=== PATIENT | male | born 1935 | race Caucasian/White ===

== ENCOUNTER 2016-11-19 10:55 | Emergency (ER) | payer OTHER, BC ==
--- NOTE | 2016-11-19 16:05 | DIAGNOSTIC IMAGING REPORT ---
PROCEDURE: XR CHEST 2 VIEW INDICATION: SHORTNESS OF BREATH TECHNIQUE: PA and lateral views. COMPARISON: None. FINDINGS: Lungs are clear. Heart and mediastinum are normal. Thorax is normal. There is apical pleural thickening on the right. IMPRESSION: 1. No acute disease
--- NOTE | 2016-11-19 16:29 | ED ORDER SUMMARY ---
..... Patient: CURT KNIGHT OrderSheet [facility] VisitID: [id number] [place] [address] 81y, M Registration Date/Time: 11/19/2016 ORDER SHEET Weight: 58.9 kg (stated) Allergies: No Known Drug Allergy GENERAL ORDERS: CBC w Diff Urgent (11:07 11/19/2016 SRoberts R.N. per protocol) (Ack 11:14 LTapper) (11:23 SRoberts R.N.) CMP Urgent (11:11/19/2016 SRoberts R.N. per protocol) (Ack 11:14 LTapper) (11:22 SRoberts R.N.) Trop[facility] (11:55 [facility] (Ack 11:57 LTapper) (15:28 SBalde R.N.) TSH Urgent (11:55 11/19/2016 [facility] ) (Ack 11:57 LTapper) (15:28 SBalde R.N.) Urine Drug Screen Urgent (11:55 11/19/2016 [facility] ) (Ack 11:57 LTapper) (15:28 SBalde R.N.) UA-Culture if indicated Urgent (11:55 11/19/2016 [facility]) (Ack 11:57 LTapper) (16:46 SStone R.N.) BNP Urgent (11:56 11/19/2016 [facility]) (Ack 11:57 LTapper) (15:28 SBalde R.N.) Old Records (from [facility] 11/17/2016) (12:01 11/19/2016 [facility] ) (Ack 12:10 LTapper) (13:06 SStone R.N.) Vitals - Orthostatic (12:10 11/19/2016 [facility]) (15:29 SBalde R.N.) Chest 2V Urgent (15:20 11/19/2016 [facility] ) (Ack 15:22 LTapper) (15:28 SBalde R.N.) Rapid Influenza Screen (Nasal Pharyngeal) (MOLDED RUBBER GOODS CUTTER swab) Urgent (17:20 11/19/2016 [facility]) (Ack 17:34 LTapper) (18:11 SStone R.N.) MEDICATION ORDERS: Tylenol PO 650 mg (NOW) (17:07 11/19/2016 SStone R.N. verbal order read back to [facility]) (Ack 17:12 SStone R.N.) (17:12 SStone R.N.) - (Tamiflu 75mg) (18:07 11/19/2016 [facility]) (18:12 SStone R.N.) Tylenol PO 325 mg (NOW) (18:12 11/19/2016 SStone R.N. verbal order read back to [facility]) (18:12 SStone R.N.) IV FLUIDS: IV Saline Lock (11:07 11/19/2016 Kathrin R.N. per protocol) (Ack 11:07 SRoberts R.N.) (11:08 SRoberts R.N.) IV NS : initial bolus 500 mL (1000 mL/hr), then 250 mL/hr for X2 (NOW) (11:56 11/19/2016 [facility]) (Ack 11:58 SStone R.N.) (12:06 SStone R.N.) ORDER SHEET NOTES: [Electronically signed by Brenda Raygoza R.N. (19:20 11/19/2016)] [Electronically signed by Tye Bhatti DO (11:23 11/20/2016)] [Electronically locked/signed by Brenda Raygoza R.N. (19:20 11/19/2016)]
--- NOTE | 2016-11-19 16:29 | ED CLINICAL REPORT ---
Clinical Report - Physicians/Mid Levels [facility] [address] [place] [address] 11/19/2016 11:08 Patient: CURT KNIGHT Time Seen: 11:50. Arrived- By ambulance. Historian- patient, EMS personnel and family. HISTORY OF PRESENT ILLNESS Chief Complaint: DIZZINESS. Severity described as moderate at its maximum. When seen in the E.D., it was almost gone. Modifying factors- worsened by standing up. Relieved by rest. Not described as a sense of movement or falling. Described as feeling light-headed and a sense of confusion. Described as feeling weak all over (transiently). This started yesterday and is still present. It was gradual in onset. The patient has had hearing loss. He has had nausea. He has had mild vomiting. The vomiting has occurred only once. No bilious emesis, blood-tinged emesis, coffee-grounds emesis or frankly bloody emesis. No tinnitus. (Pt's has been hospitalized at [facility] and pt has been traveling a lot and not drinking fluids - "only coffee".). Similar symptoms previously: Recent medical care: The patient was seen recently at another facility in the emergency department. ( Seen at [facility] yesterday - told has "acute kidney injury" and "dehydration"). REVIEW OF SYSTEMS No headache, chest pain, palpitations, black stools or bloody stools. No fever, sore throat, difficulty breathing, abdominal pain or diarrhea. No difficulty with urination or skin rash. The patient has had new onset of generalized weakness. He has had mild nasal congestion and a mild cough. All systems otherwise negative, except as recorded above. PAST HISTORY Hyperlipidemia. Hearing loss. History of cancer. Previous treatment includes chemotherapy and radiotherapy. 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 Medications: Atorvastatin 40 mg daily . Allergies: No Known Drug Allergy. SOCIAL HISTORY Never smoker. No alcohol use or drug use. Is a local resident. ADDITIONAL NOTES The nursing notes have been reviewed. PHYSICAL EXAM Vital Signs: 11/19/2016 10:52 BP: 121/61. HR: 99. RR: 19. O2 saturation: 98%. Temp: 98.8 F. Pain level now: 0/10. Appearance: Alert. Patient in mild distress. Eyes: No nystagmus. Extraocular movements normal. ENT: Moist mucous membranes. Pharynx normal. Neck: Normal inspection. CVS: Tachycardia. Heart sounds normal. Pulses normal. Respiratory: No respiratory distress. Breath sounds normal. Abdomen: Soft and nontender. Back: Normal inspection. Skin: Skin warm and dry. Normal skin color. No rash. Normal skin turgor. Extremities: Extremities exhibit normal ROM. No lower extremity edema. Neuro: Alert. Oriented X 3. Mood/affect normal. Speech normal. Cranial nerves normal (as tested). No motor deficit. No sensory deficit. Reflexes normal. LABS, X-RAYS, AND EKG EKG: EKG time: (10:56). Normal sinus rhythm. Occasional ectopic beats. Premature atrial contractions. Normal P waves. Normal JESS. Normal QRS complex. Normal axis. Non-specific ST segment / T wave abnormalities. The study has been interpreted contemporaneously by me. The EKG appears to be a good tracing. Rhythm Strip #1: Normal sinus rhythm. Regular rhythm. Narrow QRS complexes. Occasional premature atrial contractions. Premature ventricular contractions. Laboratory Tests: UA-Culture if indicated: (JUAN F: 11/19/2016 16:45) ( MsgRcvd 11/19/2016 17:13) Final results Test Result Flag Units (Reference) URINE COLOR YELLOW URINE APPEARANCE CLEAR URINE GLUCOSE NEGATIVE (NEGATIVE) URINE BILIRUBIN NEGATIVE (NEGATIVE) URINE KETONE NEGATIVE (NEGATIVE) URINE SPECIFIC GRAVITY >= 1.030 (1.010-1.030) URINE PH 5.5 (5.0-8.0) URINE PROTEIN TRACE (NEGATIVE) URINE UROBILINOGEN 0.2 EU/dL (0.2-1.0) URINE NITRITE NEGATIVE (NEGATIVE) URINE BLOOD 1+ (NEGATIVE) URINE LEUK ESTERASE NEGATIVE (NEGATIVE) URINE RBC NONE SEEN rbc/hpf (0-1) URINE WBC RARE wbc/hpf (0-1) URINE EPITHELIAL CELLS RARE EPI/hpf (0-5) URINE BACTERIA NONE SEEN (NONE SEEN) URINE COMMENT CULT NOT INDICATED URINE CULTURES ARE SET-UP BASED ON THE FOLLOWING CRITERIA:POSITIVE NITRITEPOSITIVE LEUKOCYTE ESTERASEGREATER THAN 10 WHITE BLOOD CELLSMODERATE (2+) OR GREATER BACTERIA CBC w Diff: (JUAN F: 11/19/2016 11:00) ( [facility] 11/19/2016 11:35) Final results Test Result Flag Units (Reference) WHITE BLOOD COUNT 5.9 K/uL (4.5-11.5) RED BLOOD COUNT 3.67 L M/uL (4.50-5.90) HEMOGLOBIN 11.4 L gm/dL (13.5-17.5) HEMATOCRIT 34.0 L % (41.0-53.0) MEAN CELL VOLUME 93 fL (80-100) MEAN CORPUSCULAR HGB 31 pg (26-34) MEAN CORPUSCULAR HGB CONC 33 g/dL (31-37) RED CELL DISTRIBUTION WIDTH 13.0 % (11.6-14.8) PLATELET COUNT 152 K/uL (150-400) NEUTROPHIL % 76.7 H % (50-75) LYMPH % 13.9 L % (25-40) MONO % 9.0 % (3-14) EOSINOPHIL % 0.1 % (0-4) BASOPHIL % 0.3 % (0-2) BNP: (JUAN F: 11/19/2016 11:00) ( [facility] 11/19/2016 12:17) Final results Test Result Flag Units (Reference) B-TYPE NATRIURETIC PEPTIDE 23.9 pg/ml (5-100) Urine Drug Screen: (JUAN F: 11/19/2016 16:45) ( [facility] 11/19/2016 17:23) Final results Test Result Flag Units (Reference) AMPHETAMINE/METHAMPHETAMINE NEGATIVE (NEGATIVE) BARBITURATE NEGATIVE (NEGATIVE) BENZODIAZEPINE NEGATIVE (NEGATIVE) CANNABINOID NEGATIVE (NEGATIVE) COCAINE NEGATIVE (NEGATIVE) ECSTASY NEGATIVE (NEGATIVE) METHADONE NEGATIVE (NEGATIVE) OPIATE NEGATIVE (NEGATIVE) The urine drug screen is a qualitative screening test fordrug overdose and abuse. All screen results should beconsidered as presumptive.Drugs screened for are as follows:BenzodiazepinesCocaineAmphetamines/MetamphetaminesTHC (Tetrahydrocannabinol)OpiatesBarbituratesEcstasyMethadonePositive results are unconfirmed. For confirmation, notifythe lab for the specimen to be sent to the reference lab.All confirmations must be performed by a differentmethodology.The ingestion of natural herbal and plant productscontaining Ephedra/Ephedra metabolites can produce in urineone or more substances capable of cross reacting withamphetamine/methamphetamine immunoassays. These testsprovide a preliminary result only. A more specificalternative chemical method must be used to obtain aconfirmed analytical result. Troponin-I: (JUAN F: 11/19/2016 11:00) ( MsgRcvd 11/19/2016 13:01) Final results Test Result Flag Units (Reference) TROPONIN I 0.07 ng/mL (0.00-1.5) TROPONIN REFERENCE RANGE:<0.1 NEGATIVE0.1-1.5 INDETERMINANT>1.5 POSITIVE THYROID STIMULATING HORMONE 1.750 uIU/mL (0.30-3.74) CMP: (JUAN F: 11/19/2016 11:00) ( MsgRcvd 11/19/2016 11:42) Final results Test Result Flag Units (Reference) GLUCOSE 129 H mg/dL (70-110) BUN 19 H mg/dL (7-18) CREATININE 1.6 H mg/dL (0.6-1.3) Estimated GFR 44.54 mL/min Estimated GFR- 53.98 mL/min Note: Persistent reduction over 3 months in eGFR<60 mL/min/1.73 m2 defines CKD. Patients with eGFR values>=60 mL/min/1.73 m2 may also have CKD if evidence ofpersistent proteinuria. Additional information may be foundat www.kidney.org. SODIUM 139 mmol/L (136-145) POTASSIUM 3.9 mmol/L (3.5-5.1) CHLORIDE 104 mmol/L (98-107) CARBON DIOXIDE 31 mmol/L (21-32) CALCIUM 8.3 L mg/dL (8.5-10.1) TOTAL PROTEIN 6.5 g/dL (6.4-8.2) ALBUMIN 3.7 g/dL (3.3-5.0) BILIRUBIN, TOTAL 0.6 mg/dL (0.0-1.0) ALKALINE PHOSPHATASE 65 U/L (46-116) AST (SGOT) 28 U/L (15-37) ALT (SGPT) 38 U/L (12-78) Rapid Influenza Screen: (JUAN F: 11/19/2016 17:25) ( MsgRcvd 11/19/2016 18:07) Final results SPECIMEN DESCRIPTION: COLD MOLDING PRESS OPERATOR SWAB Test Result Flag Units (Reference) RAPID INFLUENZA SCREEN CALLED TO: RAFAEL -- DATE: 11/19/16 INFLUENZA A: POSITIVE SCREEN FOR INFLUENZA A INFLUENZA B: NEGATIVE SCREEN FOR INFLUENZA B . (09/29/2016: BUN/ Cr - 16/1.34). Bedside Tests: Glucose: mild hyperglycemia - 150 (performed by EMS). Pulse Oximetry: 11/19/2016 10:52 O2 saturation: 98%. (FIO2 - room air). Interpretation: normal. PROGRESS AND PROCEDURES Course of Care: Tamiflu 75mg PO given. Acetaminophen 1000 mg PO given. Normal Saline 1 liter IVPB given. Pt has been essentially asymptomatic during entire stay. He appears to be somewhat dehydrated with mild BUN and Cr elevation and high sp gr on UA. 16:34 11/19/16. Pt being discharged and now noted to have fever. No UA back yet. Flu screen sent. Rapid flu screen confirms influenza. Pt appears to have just seroconverted. He has advanced age and may benefit from Tamiflu - begun in the ED. Patient/family counseled. Old medical records ordered. Disposition: Discharged. Condition: stable and improved. CLINICAL IMPRESSION Acute fever Near syncope .12 lead EKG performed. Mild dehydration Mild anemia. Influenza type A with upper respiratory infection. INSTRUCTIONS Rest. Drink plenty of fluids. No alcohol. (Please sit down immediately if any sense of lightheadedness again. You have declined admission now and understand, that without ongoing monitoring, you may have a problem that is not evident during your Emergency evaluations.). Warnings: Further evaluation is necessary in order to recheck abnormal lab, obtain test results, conduct further tests and assess the possibility of serious illness. It is very important to follow up with a physician. GENERAL WARNINGS: Return or contact your physician immediately if your condition worsens or changes unexpectedly, if not improving as expected, or if other problems arise. Your Current Medications: CONTINUE TAKING THE FOLLOWING MEDICATIONS: Atorvastatin 40 mg daily *. Prescription Medications: Tamiflu 75 mg: take 1 capsule orally every 12 hours for 5 days. Dispense ten (10). No refills. Substitution is permissible. Follow-up: Follow up with your doctor tomorrow. (Electronically signed by Tye Bhatti DO 11/20/2016 11:23)
--- NOTE | 2016-11-19 16:29 | ED ORDER SUMMARY ---
..... Patient: CURT KNIGHT OrderSheet [facility] VisitID: [id number] [place] [address] 81y, M Registration Date/Time: 11/19/2016 ORDER SHEET Weight: 58.9 kg (stated) Allergies: No Known Drug Allergy GENERAL ORDERS: CBC w Diff Urgent (11:07 11/19/2016 SRoberts R.N. per protocol) (Ack 11:14 LTapper) (11:23 SRoberts R.N.) CMP Urgent (11:11/19/2016 SRoberts R.N. per protocol) (Ack 11:14 LTapper) (11:22 SRoberts R.N.) Troponin-I Urgent (11:55 11[facility]19[facility]2016 [facility] ) (Ack 11:57 LTapper) (15:28 SBalde R.N.) TSH Urgent (11:55 11/19/2016 [facility] ) (Ack 11:57 LTapper) (15:28 SBalde R.N.) Urine Drug Screen Urgent (11:55 11/19/2016 [facility] ) (Ack 11:57 LTapper) (15:28 SBalde R.N.) UA-Culture if indicated Urgent (11:55 11/19/2016 [facility]) (Ack 11:57 LTapper) (16:46 SStone R.N.) BNP Urgent (11:56 11/19/2016 [facility]) (Ack 11:57 LTapper) (15:28 SBalde R.N.) Old Records (from [facility] 11/17/2016) (12:01 11/19/2016 [facility] ) (Ack 12:10 LTapper) (13:06 SStone R.N.) Vitals - Orthostatic (12:10 11/19/2016 [facility]) (15:29 SBalde R.N.) Chest 2V Urgent (15:20 11/19/2016 [facility] ) (Ack 15:22 LTapper) (15:28 SBalde R.N.) Rapid Influenza Screen (Nasal Pharyngeal) (HORSE RIDER swab) Urgent (17:20 11/19/2016 [facility]) (Ack 17:34 LTapper) (18:11 SStone R.N.) MEDICATION ORDERS: Tylenol PO 650 mg (NOW) (17:07 11/19/2016 SStone R.N. verbal order read back to [facility]) (Ack 17:12 SStone R.N.) (17:12 SStone R.N.) - (Tamiflu 75mg) (18:07 11/19/2016 [facility]) (18:12 SStone R.N.) Tylenol PO 325 mg (NOW) (18:12 11/19/2016 SStone R.N. verbal order read back to [facility]) (18:12 SStone R.N.) IV FLUIDS: IV Saline Lock (11:07 11/19/2016 Kathrin R.N. per protocol) (Ack 11:07 SRoberts R.N.) (11:08 SRoberts R.N.) IV NS : initial bolus 500 mL (1000 mL/hr), then 250 mL/hr for X2 (NOW) (11:56 11/19/2016 [facility]) (Ack 11:58 SStone R.N.) (12:06 SStone R.N.) ORDER SHEET NOTES: [Electronically signed by Brenda Raygoza R.N. (19:20 11/19/2016)] [Electronically signed by Tye Bhatti DO (11:23 11/20/2016)] [Electronically locked/signed by Brenda Raygoza R.N. (19:20 11/19/2016)]
--- NOTE | 2016-11-19 16:29 | ED NURSING NOTES ---
Clinical Report [facility] [address] 11/19/2016 11:08 Patient: CURT KNIGHT TRIAGE Triage time 10:52. Acuity: LEVEL 3. Chief Complaint: DIZZINESS and WEAKNESS. Alert. No acute distress. SEPSIS SCREEN: Sepsis Screen. Negative (no infection suspected/documented). --10:57 Brenda Raygoza R.N. 10:52 11/19/16. BP: 121/61. HR: 99. RR: 19. O2 saturation: 98%. Temp: 98.8 F. Pain level now: 0/10. --10:57 Brenda Raygoza R.N. Weight: 58.9 kg stated. Height/Length: 63 inches Per Patient. BMI: 23. --10:56 Brenda Raygoza R.N. Medications Atorvastatin 40 mg daily . --10:56 Brenda Raygoza R.N. The following entry was struck by Brenda Raygoza R.N., 10:55 (11/19/16) Reason - wrong value. <<STRICKEN ENTRY-- Atorvastatin unknown dose. --10:55 Brenda Raygoza R.N. --END STRIKE>>. Allergies No Known Drug Allergy. --10:55 Brenda Raygoza R.N. History Arrived by EMS. Historian: patient. Accompanied by friend. ( dizziness. Vomiting x 1). This started yesterday. ( Seen yesterday at [facility] for "acute kidney injury and dehydration"). The patient has had trouble walking (slow). The patient has had vomiting and weakness. Treatment PAPER PRODUCTS SUPERVISOR: None. See EMS report. --10:57 Brenda Raygoza R.N. Treatment PAPER PRODUCTS SUPERVISOR: (Blood sugar by EMS 150). --11:01 Brenda Raygoza R.N. PROBLEMS: Hypercholesterolemia. Throat CA. --10:55 Brenda Raygoza R.N. Interventions ID band on patient. --10:57 Brenda Raygoza R.N. PHYSICAL ASSESSMENT To room via stretcher. GENERAL / NEURO / PSYCH: Oriented X 4. Alert. Speech within normal limits. HEENT: No facial asymmetry noted. Pupils equal, round and reactive to light. RESPIRATORY: Breath sounds within normal limits. Respirations not labored. GI / : Abdomen soft and nontender. SKIN: Skin is warm and dry. --11:02 Brenda Raygoza R.N. NURSING PROGRESS NOTES Monitoring of patient in place. EKG time: (10:57). EKG was performed by a tech. Patient gowned. Head of bed elevated. Reassurance given. Patient identifiers checked. Call light placed in reach. Side rails up. Bed placed in lowest position. Patient ready for evaluation. Patient waiting for evaluation. --10:57 Brenda Raygoza R.N. 11:08 11/19/2016 Site #1 started via IV in the left antecubital space with an 20g angiocath, with aseptic technique and good blood return; one attempt. Blood drawn: rainbow set. Labeled in the presence of the patient and held. Saline lock flushed with 10 mL saline. --11:08 Ayanna Dutton R.N. EKG time: (10:56 AM). EKG was performed by a tech and shown to the ED physician. --12:02 Danelle Matos 12:06 11/19/2016 Started bag #1 1000 mL IV Fluids IV NS (Saline); at 500 mL/hr over 1 hour(s) via site #1 --12:06 Brenda Raygoza R.N. 12:00 11/19/16. BP: 118/64. HR: 91. RR: 18. O2 saturation: 96%. Pain level now: 0/10. --12:20 Brenda Raygoza R.N. ( patient resting quietly. Call light within reach. Daughter at bedside. Lights dimmed, warm blanket provided. No needs at this time.). --12:20 Brenda Raygoza R.N. 12:30 11/19/16. BP: 117/58. HR: 82. RR: 16. O2 saturation: 96%. --12:54 Brenda Raygoza R.N. 12:00. ( pt sleeping. call light within reach.). --12:54 Brenda Raygoza R.N. 13:05 11/19/2016 IV Fluids IV NS via IV site #1 Rate Changed: bag #1 decreased to 250 mL/hr via IV pump. IV patency established. IV site checked: no pain, redness, or swelling. IV flushed thoroughly. --13:05 Brenda Raygoza R.N. 13:41 11/19/16. BP: 122/65. HR: 85. --13:42 Brenda Raygoza R.N. ( resting quietly. no needs. call light in reach.). --13:42 Brenda Raygoza R.N. 13:54 11/19/16. BP: 138/71 (regular adult cuff) taken on the left arm, via an automated monitor, while lying. HR: 91. --14:31 Toddfelipe Danelle 13:58 11/19/16. BP: 152/78 (regular adult cuff) taken on the left arm, via an automated monitor, while sitting. RN notified. HR: 97. --14:36 Danelle Matos 14:36 11/19/16. BP: 154/86 (regular adult cuff) taken on the left arm, via an automated monitor, while standing. HR: 101. --14:37 Danelle Matos 14:00 11/19/16. BP: 154/86 (regular adult cuff) taken on the left arm, via an automated monitor, while standing. HR: 101 (regular). --14:45 Danelle Matos ( back from [facility] --15:32 Vania Lara R.N. 15:00 11/19/16. BP: 135/71. HR: 94. RR: 16. O2 saturation: 97%. --16:25 Brenda Raygoza R.N. 16:40 11/19/16. Temp: 101.7 F. Additional comments: aware . --16:40 Brenda Raygoza R.N. ( urine sent to the lab.). --16:45 Brenda Raygoza R.N. 17:12 11/19/2016 Tylenol (Acetaminophen) PO Tablets 650 mg given. --17:12 Brenda Raygoza R.N. 17:17 01/19/17. BP: 152/84. HR: 98. RR: 16. --17:23 Brenda Raygoza R.N. 17:28 11/19/16. Temp: 102.3 F. --17:28 Brenda Raygoza R.N. ( jello given). --17:28 Brenda Raygoza R.N. 15:05 11/19/2016 IV Fluids IV NS Discontinued: bag #1 infused. Total amount infused: 1000 mL. --19:20 Brenda Raygoza R.N. 18:12 11/19/2016 Tamiflu PO Capsules 75 mg given. --18:12 Brenda Raygoza R.N. 18:12 11/19/2016 Tylenol (Acetaminophen) PO Capsules 325 mg given. --18:12 Brenda Raygoza R.N. DISPOSITION / DISCHARGE 18:25 11/19/2016 Site #1 removed upon discharge. Pressure dressing applied. --19:19 Brenda Raygoza R.N. Departure time: 1825. Discharge instructions provided and reviewed with the family. Reviewed warnings. Reviewed medication(s) side effects information. Prescription(s) given to the parent. Family verbalized understanding. Written instructions provided in Bangladeshi. The patient was discharged home and accompanied by family. He left the Emergency Department in a wheelchair and via private vehicle. Family member driving. --19:19 Brenda Raygoza R.N. 19:18 11/19/16. BP: 132/79. HR: 96. RR: 18. O2 saturation: 96%. Temp: 100.4 F. Pain level now: 0/10. --19:19 Brenda Raygoza R.N. Locked/Released at 11/19/2016 19:20 by Brenda Raygoza R.N.
--- NOTE | 2016-11-19 16:29 | ED NURSING NOTES ---
Clinical Report - Nurses [facility] [place] [address] 11/19/2016 11:08 Patient: CURT KNIGHT TRIAGE Triage time 10:52. Acuity: LEVEL 3. Chief Complaint: DIZZINESS and WEAKNESS. Alert. No acute distress. SEPSIS SCREEN: Sepsis Screen. Negative (no infection suspected/documented). --10:57 Brenda Raygoza R.N. 10:52 11/19/16. BP: 121/61. HR: 99. RR: 19. O2 saturation: 98%. Temp: 98.8 F. Pain level now: 0/10. --10:57 Brenda Raygoza R.N. Weight: 58.9 kg stated. Height/Length: 63 inches Per Patient. BMI: 23. --10:56 Brenda Raygoza R.N. Medications Atorvastatin 40 mg daily . --10:56 Brenda Raygoza R.N. The following entry was struck by Brenda Raygoza R.N., 10:55 (11/19/16) Reason - wrong value. <<STRICKEN ENTRY-- Atorvastatin unknown dose. --10:55 Brenda Raygoza R.N. --END STRIKE>>. Allergies No Known Drug Allergy. --10:55 Brenda Raygoza R.N. History Arrived by EMS. Historian: patient. Accompanied by friend. ( dizziness. Vomiting x 1). This started yesterday. ( Seen yesterday at [facility] for "acute kidney injury and dehydration"). The patient has had trouble walking (slow). The patient has had vomiting and weakness. Treatment FERRIS WHEEL OPERATOR: None. See EMS report. --10:57 Brenda Raygoza R.N. Treatment FERRIS WHEEL OPERATOR: (Blood sugar by EMS 150). --11:01 Brenda Raygoza R.N. PROBLEMS: Hypercholesterolemia. Throat CA. --10:55 Brenda Raygoza R.N. Interventions ID band on patient. --10:57 Brenda Raygoza R.N. PHYSICAL ASSESSMENT To room via stretcher. GENERAL / NEURO / PSYCH: Oriented X 4. Alert. Speech within normal limits. HEENT: No facial asymmetry noted. Pupils equal, round and reactive to light. RESPIRATORY: Breath sounds within normal limits. Respirations not labored. GI / : Abdomen soft and nontender. SKIN: Skin is warm and dry. --11:02 Brenda Raygoza R.N. NURSING PROGRESS NOTES Monitoring of patient in place. EKG time: (10:57). EKG was performed by a tech. Patient gowned. Head of bed elevated. Reassurance given. Patient identifiers checked. Call light placed in reach. Side rails up. Bed placed in lowest position. Patient ready for evaluation. Patient waiting for evaluation. --10:57 Brenda Raygoza R.N. 11:08 11/19/2016 Site #1 started via IV in the left antecubital space with an 20g angiocath, with aseptic technique and good blood return; one attempt. Blood drawn: rainbow set. Labeled in the presence of the patient and held. Saline lock flushed with 10 mL saline. --11:08 Ayanna Dutton R.N. EKG time: (10:56 AM). EKG was performed by a tech and shown to the ED physician. --12:02 Danelle Matos 12:06 11/19/2016 Started bag #1 1000 mL IV Fluids IV NS (Saline); at 500 mL/hr over 1 hour(s) via site #1 --12:06 Brenda Raygoza R.N. 12:00 11/19/16. BP: 118/64. HR: 91. RR: 18. O2 saturation: 96%. Pain level now: 0/10. --12:20 Brenda Raygoza R.N. ( patient resting quietly. Call light within reach. Daughter at bedside. Lights dimmed, warm blanket provided. No needs at this time.). --12:20 Brenda Raygoza R.N. 12:30 11/19/16. BP: 117/58. HR: 82. RR: 16. O2 saturation: 96%. --12:54 Brenda Raygoza R.N. 12:00. ( pt sleeping. call light within reach.). --12:54 Brenda Raygoza R.N. 13:05 11/19/2016 IV Fluids IV NS via IV site #1 Rate Changed: bag #1 decreased to 250 mL/hr via IV pump. IV patency established. IV site checked: no pain, redness, or swelling. IV flushed thoroughly. --13:05 Brenda Raygoza R.N. 13:41 11/19/16. BP: 122/65. HR: 85. --13:42 Brenda Raygoza R.N. ( resting quietly. no needs. call light in reach.). --13:42 Brenda Raygoza R.N. 13:54 11/19/16. BP: 138/71 (regular adult cuff) taken on the left arm, via an automated monitor, while lying. HR: 91. --14:31 Toddfelipe Danelle 13:58 11/19/16. BP: 152/78 (regular adult cuff) taken on the left arm, via an automated monitor, while sitting. RN notified. HR: 97. --14:36 Danelle Matos 14:36 11/19/16. BP: 154/86 (regular adult cuff) taken on the left arm, via an automated monitor, while standing. HR: 101. --14:37 Danelle Matos 14:00 11/19/16. BP: 154/86 (regular adult cuff) taken on the left arm, via an automated monitor, while standing. HR: 101 (regular). --14:45 Danelle Matos ( back from [facility].). --15:32 Vania Lara R.N. 15:00 11/19/16. BP: 135/71. HR: 94. RR: 16. O2 saturation: 97%. --16:25 Brenda Raygoza R.N. 16:40 11/19/16. Temp: 101.7 F. Additional comments: aware . --16:40 Brenda Raygoza R.N. ( urine sent to the lab.). --16:45 Brenda Raygoza R.N. 17:12 11/19/2016 Tylenol (Acetaminophen) PO Tablets 650 mg given. --17:12 Brenda Raygoza R.N. 17:17 01/19/17. BP: 152/84. HR: 98. RR: 16. --17:23 Brenda Raygoza R.N. 17:28 11/19/16. Temp: 102.3 F. --17:28 Brenda Raygoza R.N. ( jello given). --17:28 Brenda Raygoza R.N. 15:05 11/19/2016 IV Fluids IV NS Discontinued: bag #1 infused. Total amount infused: 1000 mL. --19:20 Brenda Raygoza R.N. 18:12 11/19/2016 Tamiflu PO Capsules 75 mg given. --18:12 Brenda Raygoza R.N. 18:12 11/19/2016 Tylenol (Acetaminophen) PO Capsules 325 mg given. --18:12 Brenda Raygoza R.N. DISPOSITION / DISCHARGE 18:25 11/19/2016 Site #1 removed upon discharge. Pressure dressing applied. --19:19 Brenda Raygoza R.N. Departure time: 1825. Discharge instructions provided and reviewed with the family. Reviewed warnings. Reviewed medication(s) side effects information. Prescription(s) given to the parent. Family verbalized understanding. Written instructions provided in Brazilian. The patient was discharged home and accompanied by family. He left the Emergency Department in a wheelchair and via private vehicle. Family member driving. --19:19 Brenda Raygoza R.N. 19:18 11/19/16. BP: 132/79. HR: 96. RR: 18. O2 saturation: 96%. Temp: 100.4 F. Pain level now: 0/10. --19:19 Brenda Raygoza R.N. Locked/Released at 11/19/2016 19:20 by Brenda Raygoza R.N.
--- NOTE | 2016-11-20 11:23 | ED DISCHARGE INSTRUCTIONS ---
Patient: CURT KNIGHT General Instructions Merged With [facility] VisitID: [id number] [place] [address] 81y, M Registration Date/Time: 11/19/2016 Acute fever Near syncope .12 lead EKG performed. Mild dehydration Mild anemia. Influenza type A with upper respiratory infection. INSTRUCTIONS Rest. Drink plenty of fluids. No alcohol. (Please sit down immediately if any sense of lightheadedness again. You have declined admission now and understand, that without ongoing monitoring, you may have a problem that is not evident during your Emergency evaluations.). Warnings: Further evaluation is necessary in order to recheck abnormal lab, obtain test results, conduct further tests and assess the possibility of serious illness. It is very important to follow up with a physician. GENERAL WARNINGS: Return or contact your physician immediately if your condition worsens or changes unexpectedly, if not improving as expected, or if other problems arise. Your Current Medications: CONTINUE TAKING THE FOLLOWING MEDICATIONS: Atorvastatin 40 mg daily *. Prescription Medications: Tamiflu 75 mg: take 1 capsule orally every 12 hours for 5 days. Dispense ten (10). No refills. Substitution is permissible. Follow-up: Follow up with your doctor tomorrow. ADDITIONAL INFORMATION Febrile Illness, Uncertain Cause (Adult) You have a fever, but the cause is not certain. A fever is a natural reaction of the body to an illness such as infections due to a virus or bacteria. In most cases, the temperature itself is not harmful. It actually helps the body fight infections. A fever does not need to be treated unless you feel very uncomfortable. Sometimes a fever can be an early sign of a more serious infection. Therefore, you should watch for the signs listed below. Home Care: If signs and symptoms are severe, rest at home for the first 2-3 days. When you resume activity, don't let yourself get too tired. Stay away from cigarette smoke (yours and other peoples). You may use acetaminophen (Tylenol) or ibuprofen (Motrin, Advil) to control fever or pain, unless another medicine was prescribed. NOTE: If you have chronic liver or kidney disease or ever had a stomach ulcer or GI bleeding, talk with your doctor before using these medicines. (Aspirin should never be used in anyone under 18 years of age who is ill with a fever. It may cause severe liver damage.) Your appetite may be poor, so a light diet is fine. Avoid dehydration by drinking 6-8 glasses of fluid per day (water, sport drinks such as Gatorade, sodas without caffeine, juices, tea, soup). Extra fluid will help loosen secretions in the nose and lungs. Oonq-msf-chluech products will not shorten the duration of the illness but may be helpful for the following symptoms: cough (Robitussin DM); sore throat (Chloraseptic lozenges or spray); nasal and sinus congestion (Actifed or Sudafed). NOTE: Do not use decongestants if you have high blood pressure. Follow Up with your doctor or as advised if you do not start to improve over the next week. Get Prompt Medical Attention if any of the following occur: Cough with lots of colored sputum (mucus) or blood in your sputum Chest pain, shortness of breath, wheezing or difficulty breathing Severe headache, face, neck, throat or ear pain Feeling drowsy or confused Abdominal pain, repeated vomiting or diarrhea Joint pain or a new rash Burning when urinating Fever of 100.4F (38C) oral or higher, not better with fever medication Feeling weak or dizzy Convulsion Near-Fainting:Uncertain Cause Fainting (syncope) is a temporary loss of consciousness ("passing out"). It occurs when blood flow to the brain is reduced. Near-fainting ("near-syncope") is like fainting, but you do not fully "pass out." The common minor causes of near fainting include sudden fear, pain, emotional stress, overexertion, or quickly standing up after sitting or lying for a long time. The more serious causes for near fainting are due to either a very slow or very fast heart beat, dehydration, anemia, blood loss, problems related to the heart, or taking too much high blood pressure medicine. The exact cause of your episode is not certain. More tests may be required. Therefore, it is important that you follow up with your doctor as advised. Home Care: 1) Rest today. Resume your normal activities as soon as you are feeling back to normal. 2) If you become light-headed or dizzy, lie down right away or sit with your head between your knees. 3) Because we do not know the exact cause of your near fainting spell, another spell could occur without warning. Therefore, do not drive a car or use dangerous equipment. D o not take a bath alone (use a shower instead). Do not swim alone. You can resume these activities when your doctor says that you are no longer in danger of having a near fainting spell. 4) Stay well hydrated by drinking enough fluid each day. Follow Up with your doctor as instructed. Get Prompt Medical Attention if any of the following occur: -- Another fainting spell occurs, and it is not explained by the common causes listed above -- Chest, arm, neck, jaw, back or abdominal pain -- Shortness of breath -- Weakness, tingling or numbness in one side of the face, one arm or leg -- Slurred speech, confusion, trouble walking or seeing -- Seizure -- Blood in vomit, stools (black or red color) -- (In women) unexpected vaginal bleeding Anemia [Type Not Specified, Adult] Red blood cells carry oxygen to the tissues of the body. Anemia is a condition where the size or number of red blood cells in the body is reduced. Iron is needed to make red blood cells. The most common cause of anemia is iron deficiency. This may be due to: i) Blood loss (heavy menstrual periods or bleeding from the stomach or intestines); or, ii) Not eating enough iron-containing foods. Other causes of anemia include certain vitamin deficiencies, chronic kidney disease or certain other chronic illnesses. Anemia causes a feeling of being tired and run down. When anemia becomes severe, the skin becomes pale and there is shortness of breath with exertion. Headaches, dizziness, leg cramps with exertion, drowsiness and fatigue are other common symptoms. Home Care: If you are having symptoms of anemia listed above: -- Do not overexert yourself. -- Talk to your doctor before flying on an airplane or traveling to high altitudes. Follow Up with your doctor as advised by our staff. Additional blood testing may be required to determine the exact cause of your anemia. If testing was done on this visit, it may take several days to get all of the results. You may call this facility or follow up with your own doctor to get the results. Get Prompt Medical Attention if any of the following occur: -- Shortness of breath or chest pain -- Worsening of dizziness, fainting -- Vomiting blood or passing red or black-colored stool Dehydration (Adult) Dehydration occurs when your body loses too much fluid. This may be the result of vomiting a lot or from diarrhea,sweating a lot, or a high fever. It may also happen if you dont drink enough fluid when youre sick. Misuse of diuretics (water pills) can also be a cause. Symptoms include thirst and feeling dizzy, weak, fatigued, or very drowsy. The diet described below is usually enough to treat most cases. Sometimes you may needmedicine. Home Care Follow these guidelines for home care: Drink at least 12 8-ounce glasses of fluid every day to overcome the dehydration. Fluid may include water; orange juice; lemonade; apple, grape, and cranberry juice; clear fruit drinks; electrolyte replacement and sports drinks; and teas and coffee without caffeine. If you have been diagnosed with a kidney disease, ask your doctor how much and what types of fluids you should drink to prevent dehydration. If you have kidney disease, drinking too much fluid can cause it build up in the your body and be dangerous to your health. If you have fever, muscle aching, or headache from a viral syndrome, you may useacetaminophen or ibuprofen, unless another medicine was prescribed for this.If you have chronic liver or kidney disease or ever had a stomach ulcer or GI bleeding, talk with your doctor before using these medicines. Don't take aspirin if you are younger than 18 and are ill with a fever.Aspirin raises the chance forsevere liver injury. Follow-up care Follow up with your health care provider if you don't get better in the next 24 to 48 hours. When to seek medical care Get prompt medical attention if any of theseoccur: Continued vomiting (cant keep liquids down) Frequent diarrhea (more than 5 times a day); blood (red or black color) or mucus in diarrhea Blood in vomit or stool Swollen abdomen or increasing abdominal pain Weakness, dizziness, or fainting Unusually drowsy or confused Reduced urine output or extreme thirst Fever of 100.4 F (38 C) oral or higher that does not get better with fever medication Influenza (Adult) Influenza, also called the flu, is a viral illness that affects the air passages of the lungs. It differs from the common cold. It is highly contagious. It may be spread through the air by coughing and sneezing or by direct contact (touching the sick person and then touching your own eyes, nose or mouth). Illness starts 1-3 days after exposure and lasts for 1-2 weeks. Antibiotics are usually not needed unless a complication appears (ear or sinus infection or pneumonia). Symptoms may be mild or severe and can include extreme tiredness (wanting to stay in bed all day), chills, fevers, muscle aching, soreness with eye movement, headache, and a dry, hacking cough. Home Care: Avoid exposure to cigarette smoke (yours or others). Tylenol or ibuprofen (Advil) will help fever, muscle aching, and headache. To avoid risk of liver injury, aspirin should not be used in children and teenagers under 18 with this illness. Nausea and loss of appetite are common. A light diet is recommended. Avoid dehydration by drinking 6-8 glasses of fluids per day (water, sport drinks like Gatorade, soft drinks without caffeine, juices, tea, soup, etc.). Extra fluids will also help loosen secretions in the nose and lungs. Hglz-tap-aurmtlc cold medicines will not shorten the duration of the illness but may be helpful for the following symptoms: cough (Robitussin DM); sore throat (Chloraseptic lozenges or spray); nasal and sinus congestion (Actifed or Sudafed). [NOTE: Do not use decongestants if you have high blood pressure.] Stay home until your fever has been gone for at least 24 hours (without the use of fever-reducing medications such as ibuprofen). Follow Up with your doctor or as directed by our staff if you are not improving over the next week. Note: If you are age 65 or older, or if you have chronic asthma or COPD, we recommend a pneumococcal vaccinationevery five years. All adults shouldreceive a yearly influenza vaccination every . Ask your doctor about this. Get Prompt Medical Attention if any of the following occur: Cough with lots of colored sputum (mucus) or blood in your sputum Chest pain, shortness of breath, wheezing, or difficulty breathing Severe headache, face, neck or ear pain New rash Fever of 100.4F (38C) oral or higher, not better with fever medication Confusion, behavior change or seizure Severe weakness or dizziness Oseltamivir Phosphate Oral capsule What is this medicine? OSELTAMIVIR (os el BARON i vir) is an antiviral medicine. It is used to prevent and to treat some kinds of influenza or the flu. It will not work for colds or other viral infections. How should I use this medicine? Take this medicine by mouth with a glass of water. Follow the directions on the prescription label. Start this medicine at the first sign of flu symptoms. You can take it with or without food. If it upsets your stomach, take it with food. Take your medicine at regular intervals. Do not take your medicine more often than directed. Take all of your medicine as directed even if you think you are better. Do not skip doses or stop your medicine early. Talk to your laborer laboratory regarding the use of this medicine in children. While this drug may be prescribed for children as young as 14 days for selected conditions, precautions do apply. What side effects may I notice from receiving this medicine? Side effects that you should report to your doctor or health palliative care nurse practitioner as soon as possible: allergic reactions like skin rash, itching or hives, swelling of the face, lips, or tongue anxiety, confusion, unusual behavior breathing problems hallucination, loss of contact with reality redness, blistering, peeling or loosening of the skin, including inside the mouth seizures Side effects that usually do not require medical attention (report to your doctor or health palliative care nurse practitioner if they continue or are bothersome): cough diarrhea dizziness headache nausea, vomiting stomach pain What may interact with this medicine? Interactions are not expected. What if I miss a dose? If you miss a dose, take it as soon as you remember. If it is almost time for your next dose (within 2 hours), take only that dose. Do not take double or extra doses. Where should I keep my medicine? Keep out of the reach of children. Store at room temperature between 15 and 30 degrees C (59 and 86 degrees F). Throw away any unused medicine after the expiration date. What should I tell my health care provider before I take this medicine? They need to know if you have any of the following conditions: heart disease immune system problems kidney disease liver disease lung disease an unusual or allergic reaction to oseltamivir, other medicines, foods, dyes, or preservatives or trying to get breast-feeding What should I watch for while using this medicine? Visit your doctor or health palliative care nurse practitioner for regular check ups. Tell your doctor if your symptoms do not start to get better or if they get worse. If you have the flu, you may be at an increased risk of developing seizures, confusion, or abnormal behavior. This occurs early in the illness, and more frequently in children and teens. These events are not common, but may result in accidental injury to the patient. Families and caregivers of patients should watch for signs of unusual behavior and contact a doctor or health palliative care nurse practitioner right away if the patient shows signs of unusual behavior. This medicine is not a substitute for the flu shot. Talk to your doctor each year about an annual flu shot. You have been given the following additional information: Febrile Illness, Uncertain Cause (Adult) Near Syncope, Unknown Anemia, Type Not Specified (Adult) Dehydration (Adult) Influenza (Adult) Oseltamivir Phosphate Oral capsule Rest. (Electronically signed by Tye Bhatti DO 11/20/2016 11:23)
--- NOTE | 2016-11-20 11:23 | ED MAR SUMMARY ---
..... Medication Administration Record [facility] [address] [place] [address] Patient: CURT KNIGHT Visit ID: [id number] 81y, M Weight: 58.9 kg Height/Length: 63 in BMI: 23 ALLERGIES: No Known Drug Allergy Start 12:06 11/19/2016 Brenda Raygoza R.N., Stop 15:05 11/19/2016 Brenda Raygoza R.N. Medication Administered: IV NS (SALINE), Dose: IV Fluids over 1 hour(s), Rate: 500 mL/hr, Dispensed: 1000 mL bag, Site: #1 left AC. Medication Ordered: IV NS : initial bolus 500 mL (1000 mL/hr), then 250 mL/hr for X2 (NOW). Given 17:12 11/19/2016 Brenda Raygoza R.N. Medication Administered: TYLENOL [PO] (ACETAMINOPHEN), Dose: 650 mg Tablets PO. Medication Ordered: Tylenol PO 650 mg (NOW). Given 18:11/19/2016 Brenda Raygoza R.N. Medication Administered: TAMIFLU [PO], Dose: 75 mg Capsules PO. Medication Ordered: - (Tamiflu 75mg). Given 18:11/19/2016 Brenda Raygoza R.N. Medication Administered: TYLENOL [PO] (ACETAMINOPHEN), Dose: 325 mg Capsules PO. Medication Ordered: Tylenol PO 325 mg (NOW).
--- NOTE | 2016-11-20 11:23 | ED MED RECONCILIATION SUMMARY ---
Patient: CUTR KNIGHT Medication Reconciliation Report [facility] VisitID: [id number] [address] [place] [address] 81y, M Registration Date/Time: 11/19/2016 Weight: 58.9 kg Height/Length: 63 in. BMI: 23.0 ALLERGIES: No Known Drug Allergy The patient's Home Medications are listed below: CONTINUE TAKING THE FOLLOWING MEDICATIONS: Atorvastatin 40 mg daily The source(s) of the original Home Medication information: Not obtained. The following Medications were given to the patient in the Emergency Department: IV NS IV Fluids bolus 0, then 500 mL/hr, administered: 11/19/2016 12:06:00 PM Tylenol [PO] PO 650 mg, administered: 11/19/2016 5:12:00 PM Tamiflu [PO] PO 75 mg, administered: 11/19/2016 6:12:00 PM Tylenol [PO] PO 325 mg, administered: 11/19/2016 6:12:00 PM The following Medications were prescribed to the patient: Tamiflu 75 mg: take 1 capsule orally every 12 hours for 5 days. Dispense ten (10). No refills. Substitution is permissible. -- Tye Bhatti DO
--- NOTE | 2016-11-20 11:23 | ED MAR SUMMARY ---
..... Medication Administration Record [facility] [address] [place] [address] Patient: CURT KNIGHT Visit ID: [id number] 81y, M Weight: 58.9 kg Height/Length: 63 in BMI: 23 ALLERGIES: No Known Drug Allergy Start 12:06 11/19/2016 Brenda Raygoza R.N., Stop 15:05 11/19/2016 Brenda Raygoza R.N. Medication Administered: IV NS (SALINE), Dose: IV Fluids over 1 hour(s), Rate: 500 mL/hr, Dispensed: 1000 mL bag, Site: #1 left AC. Medication Ordered: IV NS : initial bolus 500 mL (1000 mL/hr), then 250 mL/hr for X2 (NOW). Given 17:12 11/19/2016 Brenda Raygoza R.N. Medication Administered: TYLENOL [PO] (ACETAMINOPHEN), Dose: 650 mg Tablets PO. Medication Ordered: Tylenol PO 650 mg (NOW). Given 18:11/19/2016 Brenda Rayogza R.N. Medication Administered: TAMIFLU [PO], Dose: 75 mg Capsules PO. Medication Ordered: - (Tamiflu 75mg). Given 18:11/19/2016 Brenda Raygoza R.N. Medication Administered: TYLENOL [PO] (ACETAMINOPHEN), Dose: 325 mg Capsules PO. Medication Ordered: Tylenol PO 325 mg (NOW).
--- NOTE | 2016-11-20 11:23 | ED MED RECONCILIATION SUMMARY ---
Patient: CURT KNIGHT Medication Reconciliation Report [facility] VisitID: [id number] [address] [place] [address] 81y, M Registration Date/Time: 11/19/2016 Weight: 58.9 kg Height/Length: 63 in. BMI: 23.0 ALLERGIES: No Known Drug Allergy The patient's Home Medications are listed below: CONTINUE TAKING THE FOLLOWING MEDICATIONS: Atorvastatin 40 mg daily The source(s) of the original Home Medication information: Not obtained. The following Medications were given to the patient in the Emergency Department: IV NS IV Fluids bolus 0, then 500 mL/hr, administered: 11/19/2016 12:06:00 PM Tylenol [PO] PO 650 mg, administered: 11/19/2016 5:12:00 PM Tamiflu [PO] PO 75 mg, administered: 11/19/2016 6:12:00 PM Tylenol [PO] PO 325 mg, administered: 11/19/2016 6:12:00 PM The following Medications were prescribed to the patient: Tamiflu 75 mg: take 1 capsule orally every 12 hours for 5 days. Dispense ten (10). No refills. Substitution is permissible. -- Tye Bhatti DO
== END 2016-11-19 18:25 | disposition home or self-care (01) ==
LOC: ED SRH 10:55
DX: J10.1 Influenza due to other identified influenza virus with other respiratory manifestations (principal); R55 Syncope and collapse; E86.0 Dehydration; D64.9 Anemia, unspecified; E78.5 Hyperlipidemia, unspecified; Z79.899 Other long term (current) drug therapy
CPT/HCPCS: 90004; 90100; 90616; 91320; 91400; 92760; 92761; 92762; 92763; 92764; 92765; 92766; 92767; 93140; 95059